=== PATIENT | female | born 1940 | race Caucasian/White ===

== ENCOUNTER → 2016-12-19 | Day surgery (SDC) | payer OTHER ==
[~2016-12-19] MED LIST: ACETAMINOPHEN PO; ALENDRONATE SOD70 M1 PO; AMBIEN PO; AMITRYPTYLINE PO; AMLODIPINE BESY10 MG PO; ANEXSIA 7.5/3251 TA1 PO; ANTIVERT; ASPIRIN PO; ASPIRIN81 M2 PO; ASPIRIN81 MG PO; ASPRIN PO; ASTELIN137 MCG; ATENOLOL 25 MG PO; ATENOLOL PO; ATENOLOL25 MG PO; BACTRIM DS TABL1 TAB; BENTYL10 MG DOB; BUPROPION 100 MG PO; CALCIUM + D 6001 TA1 PO; CALCIUM 600 + D1 TA1 PO; CALCIUM 600 +1 EAC1 PO; CARBIDOPA PO; CARBIDOPA-LEVO1 EAC1 PO; CIPRO PO; CIPRO250 MG PO; CLARITIN 10 MG PO; CLARITIN D PO; CLARITIN10 M3 PO; CLIMARA1 PATCH.WK; CLOPIDOGREL75 MG PO; COUMADIN3 MG PO; DEXILANT30 MG PO; DIAZEPAM PO; DICYCLOMINE HCL20 MG PO; DITROPAN5 MG PO; DOCUSATE SODIU100 MG PO; DYAZIDE 371 CAP 37.5 PO; FETZIMA40 MG PO; FETZIMA80 MG PO; FISH OIL 1,001000 M1 PO; FLAGYL PO; FLONASE ALLERG9.9 ML; GABAPENTIN 300 MG PO; GABAPENTIN300 M2 PO; GABAPENTIN300 MG PO; GABAPENTIN600 MG PO; HCTZ; HCTZ PO; HYDROCHLOROTH12.5 M1 PO; HYDROCODON-ACE1 EAC1 PO; HYDROCODON-ACE1 EAC5 PO; HYDROCODON-ACE1 EAC9 PO; HYDROCODONE 7.5/325 PO; IMDUR PO; IMDUR-ER30 M1 PO; IMDUR-ER30 MG PO; ISOSORBIDE 30 MG PO; ISOSORBIDE MONO30 MG PO; KAPIDEX30 MG PO; LEVAQUIN PO; LINZESS290 MCG PO; LORTAB 7.5-5001 TAB; LORTAB 7.5-5001 TAB PO; LYRICA225 MG PO; LYRICA50 MG PO; MACROBID 100 M100 MG PO; MIRALAX17 GM PO; MULTI VITAMIN1 EACH PO; MULTI-VITAMIN1 TAB PO; MULTIVITAMINS1 EAC3; NEURONTIN100 MG PO; NEURONTIN300 MG PO; NEURONTIN600 MG PO; NEXIUM 40 MG PO; NEXIUM PO; NITROGLYCERIN0.3 MG SL; NITROGLYGERIN0.4 MG SL; NITROGYLCERIN SL; NITROGYLCERIN SUBLINGUAL; NITROSTAT 0.4 MG PO; NITROSTAT0.4 MG SL; NORVASC10 MG PO; NYSTATIN30 GM TOP; PHENERGAN25 M1 PO; PLAVIX PO; POTASSIUM CHLO10 ME1 PO; PREDNISONE PO; PROBIOTIC1 EACH PO; PROZAC PO; SENNA PO; SEROQUEL; SERTRALINE 100 MG PO; SERTRALINE HCL100 M1 PO; SINGULAIR PO; TENORMIN25 MG PO; ULTRAM PO; VERAMYST10 GM NS; VITAMIN B-1000 MCG/1 SUBQ; VITAMIN D250000 UNIT PO; VITAMIN D50000 UNIT PO; VITD PO; WELLBUTRIN PO; WELLBUTRIN100 MG PO; ZANTAC; ZETIA PO; ZITHROMAX PO; ZITHROMAX1 G/PKT PO; ZOFRAN ODT4 MG PO; ZOFRAN PO; ZOLOFT PO; ZOLOFT100 MG PO; ZYRTEC
--- NOTE | ~2016-12-19 | OR ---
Unit #: [id number] #: [id number] Patient: ROOSEVELT HENDERSON [id number] [address] [address] [id number] MR#: [id number] NAME: ROOSEVELT HENDERSON ROOM: Date of Procedure: 12/19/2016 Admission Date: 12/19/2016 Surgeon: Ben Clark M.D. : 1940 Attending Physician: Ben Clark M.D. Primary Care Physician: Kalpesh Jon M.D. OPERATIVE REPORT JOB NOTE: CC: [facility] PREOPERATIVE DIAGNOSES Back pain, radiculopathy, degenerative disk disease, low back pain, spondylolisthesis. POSTOPERATIVE DIAGNOSES Back pain, radiculopathy, degenerative disk disease, low back pain, spondylolisthesis. PROCEDURE PERFORMED Lumbar epidural steroid injection with intravenous sedation and fluoroscopic guidance for needle localization. INDICATIONS FOR PROCEDURE The patient is a 76-year-old with previously mentioned diagnosis. She had a recent re-flare of her pain. She was last treated in 01/2016. The pain has flared up significantly over the last month or so, would not settle with conservative treatment. Based on history, pathology, and symptomatology, as well as available treatment options, we are going to proceed with a repeat epidural steroid injection today. DESCRIPTION OF PROCEDURE The patient was placed in a seated position. Standard monitors were applied. 2 mg of Versed were given for sedation and anxiolysis, which were adequate. Vital signs remained stable. Sterile prep and drape then of the lumbar area was performed. The skin then at the L4 level was localized with 1% lidocaine. An 18-gauge Wishtead needle was then advanced via loss of resistance technique and fluoroscopic guidance in toward the epidural space. After confirming proper positioning with fluoroscopy and radiographic contrast, 80 mg of Depo-Medrol and 4 mL of 0.125% bupivacaine were deposited. The patient tolerated the procedure otherwise well and was discharged to recovery room in stable condition. Dictated by... Arsh Jeffrey/oziel TD: 12/20/2016 01:12 Unit #: [id number] #: [id number] Patient: ROOSEVELT HENDERSON JOB #: [id number] OPERATIVE REPORT Page 1 of 1 X Ben Clark MD X PROCEDURE OPERATIVE NOTE
== END | disposition home or self-care (01) ==
LOC: CCSC 10:30
DX: M51.16 Intervertebral disc disorders with radiculopathy, lumbar region (principal); M43.16 Spondylolisthesis, lumbar region; I10 Essential (primary) hypertension; I25.10 Atherosclerotic heart disease of native coronary artery without angina pectoris; F41.8 Other specified anxiety disorders; Z86.718 Personal history of other venous thrombosis and embolism
CPT/HCPCS: J1040; J2250